=== PATIENT | male | born 2000 | race Caucasian/White ===

== ENCOUNTER 2023-04-30 19:54 | Emergency (ER) | payer BC ==
[2023-04-30] MEDS ORDERED: Acetaminophen/HYDROcodone 325-5 MG Tab PO ONE (19:55)
[2023-04-30] MEDS: Diphtheria,Pertussis(Acell),Tetanus Vaccine 0.5 ML Syringe IM ONE (21:23)
[2023-04-30] MEDS: Erythromycin Base 0.5% Ophth Oint 3.5 GM Tube EYERT ONE (21:27)
== END 2023-04-30 21:43 | disposition home or self-care (01) ==
LOC: FB.ED 19:54
DX: S05.01XA Injury of conjunctiva and corneal abrasion without foreign body, right eye, initial encounter (principal); Z23 Encounter for immunization; W44.9XXA Unspecified foreign body entering into or through a natural orifice, initial encounter; Y93.89 Activity, other specified
CPT/HCPCS: 65220; 90471; 90715; 99283-25; A9270-GY